=== PATIENT | male | born 1995 | race Caucasian/White ===

== ENCOUNTER 2017-11-27 22:51 | Emergency (ER) | payer MEDICAID ==
[~2017-11-27] VITALS: Ht 167.6 cm; Wt 90.9 kg
[~2017-11-27 22:51] MED LIST: ALBU6.7H INH; CYCL-1 PO; FAMO-128 PO; HYDR-569 PO; IBUP-1984 PO; NO HOME MEDS; ONDA4TAB6 PO; SUCR1ORA2 PO; ZOF4T PO; [UNRECOGNIZED DRUG - CODE] PO
[2017-11-27 22:52] VITALS: BP 143/74
[2017-11-27] MEDS ORDERED: normal saline 1000ML IV soln IVB ONE (22:55)
[2017-11-27 23:12] LABS: CLARITY,URINE CLEAR (Clear); COLOR,URINE YELLOW (Yellow); GLUCOSE, URINE NEGATIVE (Neg); KETONES,URINE NEGATIVE (Neg); LEUKOCYTE ESTERASE ,URINE NEGATIVE (Neg); NITRITES, URINE NEGATIVE (Neg); OCCULT BLOOD,URINE NEGATIVE (Neg); PROTEIN,URINE NEGATIVE (Neg); UROBILINOGEN,URINE 0.2 E.U/dL (0.2-1.0)
[2017-11-27 23:23] LABS: UA COLLECTION TYPE CLN CATCH MIDSTREAM
[2017-11-27 23:25] LABS: BASOPHILS # (AUTO) 0.2 X10'3 (0-0.2); BASOPHILS % (AUTO) 1.2 % (0-1); EOSINOPHILS # (AUTO) 0.2 X10'3 (0-0.9); EOSINOPHILS % (AUTO) 1.1 % (0-6); HEMATOCRIT 44.5 % (42.0-52.0); HEMOGLOBIN 15.2 g/dl (14.0-17.9); LYMPHOCYTES # (AUTO) 4.2 X10'3 (1.1-4.8); MEAN CORPUSCULAR HEMOGLOBIN 30.7 PG (27.0-31.0); MEAN CORPUSCULAR HGB CONC 34.2 % (33.0-36.5); MEAN CORPUSCULAR VOLUME 89.8 FL (78-98); MONOCYTES # (AUTO) 1.1 X10'3 (0-0.9); MONOCYTES % (AUTO) 7.4 % (2-12); NEUTROPHILS # (AUTO) 8.9 X10'3 (1.8-7.7); NEUTROPHILS % (AUTO) 61.3 % (42-75); PLATELET COUNT 378 X10'3 (140-440); RED BLOOD COUNT 4.95 X10'6 (4.70-6.10); RED CELL DISTRIBUTION WIDTH 13.9 % (11.5-14.5); WHITE BLOOD COUNT 14.5 X10'3 (4.5-11.0)
[2017-11-27 23:26] LABS: ALANINE AMINOTRANSFERASE 22 U/L (12-78); ALBUMIN 4.1 G/DL (3.4-5.0); ALBUMIN/GLOBULIN RATIO 1.1 (1.1-1.5); ALKALINE PHOSPHATASE 74 IU/L (46-116); ANION GAP 17 (8-16); ASPARTATE AMINO TRANSFERASE 16 U/L (10-37); BILIRUBIN,TOTAL 0.2 MG/DL (0.1-1.0); BLOOD UREA NITROGEN 7 MG/DL (7-18); BUN/CREATININE RATIO 7.2 (5.4-32.0); CALCIUM 8.8 MG/DL (8.5-10.1); CHLORIDE 103 MMOL/L (99-107); CREATINE KINASE 119 U/L (39-308); CREATININE 0.97 MG/DL (0.60-1.10); GLUCOSE 125 MG/DL (70-104); POTASSIUM 3.3 MMOL/L (3.5-5.1); SODIUM 144 MMOL/L (135-145); TOTAL CARBON DIOXIDE 24.5 MMOL/L (24-32); TOTAL PROTEIN 7.7 G/DL (6.4-8.2); eGFR > 90 ML/MIN
[2017-11-27 23:27] LABS: URINE AMPHETAMINE SCREEN NEGATIVE (Neg); URINE BARBITUATE SCREEN NEGATIVE (Neg); URINE BENZODIAZEPINES SCREEN NEGATIVE (Neg); URINE CANNABINOID SCREEN POSITIVE (Neg); URINE COCAINE SCREEN NEGATIVE (Neg); URINE METHADONE SCREEN NEGATIVE (Neg); URINE OPIATE SCREEN NEGATIVE (Neg); URINE PHENCYCLIDINE SCREEN NEGATIVE (Neg)
[2017-11-27 23:28] LABS: ACETAMINOPHEN < 2.0 UG/ML (10-30)
[2017-11-28 00:21] LABS: TOTAL CELLS COUNTED 100
[2017-11-28 00:22] LABS: PLATELET ESTIMATE NORMAL
== END 2017-11-28 00:22 | disposition home or self-care (01) ==
LOC: ER 22:51
DX: S20.219A Contusion of unspecified front wall of thorax, initial encounter (principal); G93.49 Other encephalopathy; F19.10 Other psychoactive substance abuse, uncomplicated; F10.129 Alcohol abuse with intoxication, unspecified; G89.29 Other chronic pain; Z56.0 Unemployment, unspecified; X58.XXXA Exposure to other specified factors, initial encounter; Y93.89 Activity, other specified; Y92.89 Other specified places as the place of occurrence of the external cause; Y99.9 Unspecified external cause status; Y90.9 Presence of alcohol in blood, level not specified
CPT/HCPCS: 36415; 71045; 80053; 80305; 80320; 80329; 81003; 82550; 82948; 85025; 93005; 99285

== ENCOUNTER 2018-03-11 11:15 | Emergency (ER) | payer MEDICAID ==
[~2018-03-11] VITALS: Ht 167.6 cm; Wt 80.0 kg
[~2018-03-11 11:15] MED LIST changes: +HYDR-4383 PO; -HYDR-569 PO; -IBUP-1984 PO
[2018-03-11 11:55] VITALS: BP 119/54
[2018-03-11] MEDS ORDERED: LACT1CAP65 PO (13:28)
[2018-03-11] MEDS ORDERED: ONDA4TAB6 PO (13:28)
[2018-03-11] MEDS ORDERED: proMETHazine 25mg tablet PO ONE (13:40)
== END 2018-03-11 13:53 | disposition home or self-care (01) ==
LOC: ER 11:15
DX: K59.00 Constipation, unspecified (principal); R10.9 Unspecified abdominal pain; G89.29 Other chronic pain; F17.200 Nicotine dependence, unspecified, uncomplicated; Z79.899 Other long term (current) drug therapy; Z56.0 Unemployment, unspecified
CPT/HCPCS: 74018; 99283; Q0169

== ENCOUNTER 2018-06-28 22:08 | Emergency (ER) | payer MEDICAID ==
[~2018-06-28] VITALS: Ht 167.6 cm; Wt 74.5 kg
[~2018-06-28 22:08] MED LIST changes: +LACT1CAP65 PO
[2018-06-28] MEDS ORDERED: LIDOcaine 1% w/epiNEPHrine 1:200,000 30ml vial IM ONE (23:05)
[2018-06-28] MEDS ORDERED: CEPH-572 PO (23:58)
[2018-06-28] MEDS ORDERED: HYDR-3965 PO (23:58)
[2018-06-29 00:05] VITALS: BP 132/74
== END 2018-06-29 00:07 | disposition home or self-care (01) ==
LOC: ER 22:09
DX: S60.122A Contusion of left index finger with damage to nail, initial encounter (principal); Z56.0 Unemployment, unspecified; Z79.899 Other long term (current) drug therapy; W22.8XXA Striking against or struck by other objects, initial encounter; Y93.89 Activity, other specified; Y92.89 Other specified places as the place of occurrence of the external cause; Y99.8 Other external cause status
CPT/HCPCS: 11740; 99283

== ENCOUNTER 2018-08-02 15:18 | Emergency (ER) | payer MEDICAID ==
[~2018-08-02] VITALS: Ht 170.2 cm; Wt 75.3 kg
[2018-08-02 16:22] LABS: BASOPHILS # (AUTO) 0.1 X10'3 (0-0.2); BASOPHILS % (AUTO) 1.2 % (0-1); EOSINOPHILS # (AUTO) 0.2 X10'3 (0-0.9); EOSINOPHILS % (AUTO) 1.8 % (0-6); HEMATOCRIT 40.1 % (42.0-52.0); HEMOGLOBIN 13.7 g/dl (14.0-17.9); LYMPHOCYTES # (AUTO) 3.1 X10'3 (1.1-4.8); LYMPHOCYTES % (AUTO) 33.4 % (21-51); MEAN CORPUSCULAR HEMOGLOBIN 31.3 PG (27.0-31.0); MEAN CORPUSCULAR HGB CONC 34.3 g/dL (33.0-36.5); MEAN CORPUSCULAR VOLUME 91.2 FL (78-98); MONOCYTES # (AUTO) 0.7 X10'3 (0-0.9); MONOCYTES % (AUTO) 7.4 % (2-12); NEUTROPHILS # (AUTO) 5.3 X10'3 (1.8-7.7); NEUTROPHILS % (AUTO) 56.2 % (42-75); PLATELET COUNT 343 X10'3 (140-440); RED BLOOD COUNT 4.39 X10'6 (4.70-6.10); RED CELL DISTRIBUTION WIDTH 13.4 % (11.5-14.5); WHITE BLOOD COUNT 9.4 X10'3 (4.5-11.0)
[2018-08-02 16:36] LABS: ALANINE AMINOTRANSFERASE 38 U/L (12-78); ALBUMIN 3.7 G/DL (3.4-5.0); ALBUMIN/GLOBULIN RATIO 1.1 (1.1-1.5); ALKALINE PHOSPHATASE 56 IU/L (46-116); ANION GAP 10 (8-16); ASPARTATE AMINO TRANSFERASE 26 U/L (10-37); BILIRUBIN,TOTAL 0.2 MG/DL (0.1-1.0); BLOOD UREA NITROGEN 13 MG/DL (7-18); BUN/CREATININE RATIO 18.1 (5.4-32.0); CALCIUM 9.1 MG/DL (8.5-10.1); CHLORIDE 106 MMOL/L (99-107); CREATININE 0.72 MG/DL (0.60-1.10); GLUCOSE 115 MG/DL (70-104); POTASSIUM 3.9 MMOL/L (3.5-5.1); SODIUM 141 MMOL/L (135-145); TOTAL CARBON DIOXIDE 24.8 MMOL/L (24-32); TOTAL PROTEIN 7.2 G/DL (6.4-8.2); eGFR > 90 ML/MIN
[2018-08-02] MEDS ORDERED: ceFAZolin 1GM/D5W- ADD-VANTAGE 50 ML IV ONE (16:45)
[2018-08-02] MEDS ORDERED: CLIN150C2 PO (17:27)
[2018-08-02 18:10] VITALS: BP 121/5
== END 2018-08-02 18:15 | disposition home or self-care (01) ==
LOC: ER 15:18
DX: M86.8X4 Other osteomyelitis, hand (principal); G89.29 Other chronic pain; Z79.899 Other long term (current) drug therapy
CPT/HCPCS: 36415; 73140; 80053; 84145; 85025; 96365; 99284; J0690

== ENCOUNTER 2018-11-04 07:01 | Emergency (ER) | payer MEDICAID, OTHER ==
[~2018-11-04] VITALS: Ht 170.2 cm; Wt 72.3 kg
[~2018-11-04 07:01] MED LIST changes: -ALBU6.7H INH; +ALBU6.7H9 INH; +CLIN-96 PO
[2018-11-04] MEDS ORDERED: HYDR-4353 PO (08:47)
[2018-11-04] MEDS ORDERED: ONDA4TAB6 PO (08:47)
[2018-11-04 08:57] VITALS: BP 118/72
== END 2018-11-04 08:58 | disposition home or self-care (01) ==
LOC: ER 07:02
DX: S00.83XA Contusion of other part of head, initial encounter (principal); S09.90XA Unspecified injury of head, initial encounter; G89.29 Other chronic pain; F17.200 Nicotine dependence, unspecified, uncomplicated; Z79.2 Long term (current) use of antibiotics; Z79.899 Other long term (current) drug therapy; V89.2XXA Person injured in unspecified motor-vehicle accident, traffic, initial encounter; Y93.89 Activity, other specified; Y92.410 Unspecified street and highway as the place of occurrence of the external cause; Y99.8 Other external cause status
CPT/HCPCS: 70450; 99284

== ENCOUNTER → 2019-04-12 | Emergency (ER) | payer MEDICAID ==
[~2019-04-12] VITALS: Ht 167.6 cm; Wt 82.7 kg
[~2019-04-12] MED LIST changes: +CLIN-90 PO; -CLIN-96 PO; +ondansetron 4mg rapidly disintigrating tab PO ONE
[2019-04-12 21:49] LABS: BASOPHILS # (AUTO) 0.2 X10'3 (0-0.2); BASOPHILS % (AUTO) 1.2 % (0-1); EOSINOPHILS # (AUTO) 0.4 X10'3 (0-0.9); EOSINOPHILS % (AUTO) 2.8 % (0-6); HEMATOCRIT 43.9 % (42.0-52.0); HEMOGLOBIN 15.3 g/dl (14.0-17.9); LYMPHOCYTES % (AUTO) 31.7 % (21-51); MEAN CORPUSCULAR HEMOGLOBIN 31.3 PG (27.0-31.0); MEAN CORPUSCULAR HGB CONC 34.9 g/dL (33.0-36.5); MEAN CORPUSCULAR VOLUME 89.6 FL (78-98); MEAN PLATELET VOLUME 7.5 FL (7.4-10.4); MONOCYTES # (AUTO) 0.9 X10'3 (0-0.9); MONOCYTES % (AUTO) 7.3 % (2-12); NEUTROPHILS # (AUTO) 7.2 X10'3 (1.8-7.7); PLATELET COUNT 318 X10'3 (140-440); WHITE BLOOD COUNT 12.7 X10'3 (4.5-11.0)
[2019-04-12 22:05] LABS: ALANINE AMINOTRANSFERASE 23 U/L (12-78); ALBUMIN 4.3 G/DL (3.4-5.0); ALBUMIN/GLOBULIN RATIO 1.2 (1.1-1.5); ALKALINE PHOSPHATASE 73 IU/L (46-116); ANION GAP 8 (8-16); ASPARTATE AMINO TRANSFERASE 16 U/L (10-37); BILIRUBIN,TOTAL 0.3 MG/DL (0.1-1.0); BLOOD UREA NITROGEN 15 MG/DL (7-18); BUN/CREATININE RATIO 18.5 (5.4-32.0); CALCIUM 9.5 MG/DL (8.5-10.1); CHLORIDE 106 MMOL/L (99-107); CREATININE 0.81 MG/DL (0.60-1.10); GLUCOSE 108 MG/DL (70-104); POTASSIUM 3.9 MMOL/L (3.5-5.1); SODIUM 142 MMOL/L (135-145); TOTAL CARBON DIOXIDE 27.9 MMOL/L (24-32); eGFR > 90 ML/MIN
--- NOTE | 2019-04-12 22:59 | NUR ---
pt refused fluids and flu swab. kailyn rowland aware.
[2019-04-12 23:22] VITALS: BP 116/51
== END | disposition home or self-care (01) ==
LOC: ER 20:50
DX: B34.9 Viral infection, unspecified (principal); R11.0 Nausea; R05 Cough; G89.29 Other chronic pain; F12.90 Cannabis use, unspecified, uncomplicated; Z79.2 Long term (current) use of antibiotics; Z79.899 Other long term (current) drug therapy
CPT/HCPCS: 36415; 71045; 80053; 84484; 85025; 93005; 99285

== ENCOUNTER 2024-06-27 10:44 | Emergency (ER) | payer SELFPAY ==
[~2024-06-27] VITALS: Ht 167.6 cm; Wt 102.1 kg
[~2024-06-27 10:44] MED LIST changes: +ALBU6.7H14 INH; -ALBU6.7H9 INH; -CLIN-90 PO; +CLIN-97 PO; -ondansetron 4mg rapidly disintigrating tab PO ONE
[2024-06-27 11:05] VITALS: TEMP 97.2
--- NOTE | 2024-06-27 11:24 | Physician Documentation ---
History of Present Illness ~ Chief Complaint: Hand pain Stated Complaint: R HAND INJURY Time Seen by MD: 11:08 Primary Medical Doctor: none HPI This 29-year-old male presents with right ulnar hand pain after punching a wall two days prior, patient presents with a hand brace on due to report of pain in the time he bumps up against something with his hand. Patient reports no other acute symptoms or concerns. Tetanus within 5 years: Yes Medication Reconciliation Allergies: Coded Allergies: No Known Allergies (Unverified , 11/05/15) Scheduled Albuterol Sulfate (Proventil Hfa), 2 PUFFS INH Q4H Chlorhexidine Gluconate (Chlorhexidine Gluconate), 10 ML PO BID Clindamycin HCL* (Clindamycin HCL*), 1 CAP PO Q6H Famotidine (Pepcid), 1 TAB PO Q12H Famotidine (Pepcid), 1 TAB PO Q12H Lactobacillus Acidophilus (Probiotic), 1 CAP PO DAILY Ondansetron Hcl (Zofran), 1 TAB PO Q6H PRN Ondansetron Hcl (Zofran), 1 TAB PO Q6H Ondansetron Hcl (Zofran), 1 TAB PO Q6H PRN Ondansetron ODT* (Zofran ODT*), 4 MG PO Q6H Sucralfate (Carafate), 10 ML PO Q6H Sucralfate (Carafate), 10 ML PO [id number] Scheduled PRN Cyclobenzaprine* (Cyclobenzaprine*), 1 TABLET PO Q8H PRN for muscle spasms Cyclobenzaprine* (Cyclobenzaprine*), 1 TABLET PO Q8H PRN for muscle spasms Hydrocodone/Acetaminophen (Bayard 5-325 Tablet), 1 TABLET PO Q6H PRN for pain Hydrocodone/Acetaminophen (Bayard 5-325 Tablet), 1 TAB PO Q6H PRN for pain Ondansetron Hcl (Zofran), 1 TABLET PO Q6H PRN for nausea/vomiting Miscellaneous Medications Home Med List (No Home Medications), (Reported) Past Medical History Past Medical History: No Pertinent History, Chronic Pain Past Surgical History: no surgical history Alcohol Use: Sober Drug Use: marijuana Lives with: Family Lives In: Home Occupation: employed, student Review of Systems ROS Right hand pain as stated above in the HPI, otherwise all systems are reviewed and negative. Physical Exam Vital Signs: Temperature: 97.2, Source: Temporal, Heart Rate: 64, Respiratory Rate: 18, BP: 157/91, Pulse Oximetry: 100, Weight: 102.060 Physical Exam VITALS: Reviewed and as above. GENERAL: Alert, nontoxic appearing, no apparent distress. RESPIRATORY: No increased work of breathing, no respiratory distress, speaking in full clear sentences MUSCULOSKELETAL: Tenderness to 4th and 5th digits, Ecchymosis to dorsal surface of 4th and 5th digits, sensation intact Progress Results/Orders Results/Orders Orders - MADAI RAMOS Hand, Complete (3vw Min) (06/27/24 11:07) Ortho Orders (06/27/24 12:35) Completed Orders - MADAI RAMOS [employer] DES[employer] Ketorolac Trometh 15mg/Ml Vial (Toradol (06/27/24 11:10) Hand, Complete (3vw Min) (06/27/24 11:07) Vital Signs 06/27/24 06/27/24 06/27/24 11:05 11:52 12:18 Temp 97.2 Pulse 64 49 Resp 18 16 16 B/P (MAP) 157/91 131/81 Pulse Ox 100 97 EKG/XRAY/CT/US/VASC/MRI Bone/Soft Tissue X-Ray (Ext.) : Additional Comment EXAM: DI HAND, COMPLETE (3VW MIN) CLINICAL INDICATION: Hand Pain,RIGHT TECHNIQUE: DI HAND, COMPLETE (3VW MIN) Comparison: None FINDINGS/IMPRESSION: There is no evidence of acute fracture or dislocation. The visualized joint space is well maintained. The alignment is anatomical. There is no radiopaque foreign body. Electronically Signed by:GREGG TATE MD Date & Time: 06/27/241136 Dictated by: GREGG TATE MD Dictation date and time: 06/27/241136 I have reviewed and agree with the radiology report. I have reviewed and interpreted the imaging as: No fracture or dislocation Medical Decision Making Findings This 29-year-old male presented with pain to his right hand worse two 4th and 5th digits after punching a wall, the fingers were neurovascularly intact with mild ecchymosis to the dorsal surface, physical exam did not demonstrate any swelling or obvious deformity and x-ray demonstrated no evidence of fracture or dislocation. Patient was medicated for pain reporting adequate relief and the fingers were wrapped and padded for comfort. Remainder of physical exam was benign and patient is appropriate for outpatient follow up. Hand Diff Dx:Considerations: Include: Abrasion, Contusion, Fracture-carpal, Fracture-metacarpal, Fracture-phalynx, Fracture-radius, Fracture-ulna, Laceration, Neurovascular injury, Subungual hematoma, Tenosynovitis Departure Time of Disposition: 12:43 Disposition: 01 HOME / SELF CARE / HOMELESS Impression: Primary Impression: Hand pain Qualified Codes: M79.641 - Pain in right hand Condition: Improved Discharge Instructions: RICE Therapy for Routine Care of Injuries, [id number] Additional Instructions: Keep the area wrapped for comfort, you may use ibuprofen and or Tylenol as needed for pain as directed by [id number] packaging. May ice the area 20 minutes at time with at least 30 minutes between ice applications. Please follow the RICE therapy home care instructions were provided. Please follow up with your primary care provider in the next few days. Please return to the emergency department for any new or worsening concerning symptoms. Referrals: NO PRIMARY CARE PROVIDER (PCP) Education Educated: Patient Educated regarding: diagnosis, treatment, prognosis, need for follow up Signature Scribe Signature: No scribe Attestation: The note accurately reflects work and decisions made by me.SHANNA Vincent 06/27/24 22:41 MADAI RAMOS Jun 27, 2024 11:24
--- NOTE | 2024-06-27 11:39 | RADIOLOGY REPORT ---
EXAM: DI HAND, COMPLETE (3VW MIN) CLINICAL INDICATION: Hand Pain,RIGHT TECHNIQUE: DI HAND, COMPLETE (3VW MIN) Comparison: None FINDINGS/IMPRESSION: There is no evidence of acute fracture or dislocation. The visualized joint space is well maintained. The alignment is anatomical. There is no radiopaque foreign body.
[2024-06-27] MEDS: ketorolac trometh 15mg/ml vial 15 MG/ML ML IM ONE (11:52)
[2024-06-27 12:18] VITALS: BP 131/81; PULSE 49; RESP 16; O2SAT 97
== END 2024-06-27 12:55 | disposition home or self-care (01) ==
LOC: ER 10:45
DX: M79.641 Pain in right hand (principal); W22.01XA Walked into wall, initial encounter; Y93.89 Activity, other specified; Y92.89 Other specified places as the place of occurrence of the external cause; Y99.8 Other external cause status
CPT/HCPCS: 73130; 96372; 99283; J1885